=== PATIENT | male | born 1990 | race African-American/Black ===

== ENCOUNTER 2020-01-22 17:57 | Emergency (ER) | payer BC ==
[~2020-01-22] VITALS: Ht 180.3 cm; Wt 63.5 kg
[2020-01-22 19:29] VITALS: BP 133/73; Ht 180.3 cm; Wt 63.5 kg
== END 2020-01-22 19:53 | disposition home or self-care (01) ==
LOC: ED 17:57
DX: M25.511 Pain in right shoulder (principal); Z90.89 Acquired absence of other organs